=== PATIENT | male | born 1965 | race Caucasian/White ===

== ENCOUNTER 2021-02-13 00:31 | Emergency (ER) | payer BC ==
[~2021-02-13] VITALS: Ht 177.8 cm; Wt 92.1 kg
[2021-02-13] MEDS ORDERED: MIRAPEX1 MG PO (00:48)
== END 2021-02-13 02:36 | disposition home or self-care (01) ==
LOC: ED 00:31
DX: S61.411A Laceration without foreign body of right hand, initial encounter (principal); Z23 Encounter for immunization; V89.2XXA Person injured in unspecified motor-vehicle accident, traffic, initial encounter
CPT/HCPCS: 12002; 90471; 90715; 99282-25

== ENCOUNTER 2021-08-27 11:21 | Emergency (ER) | payer OTHER, BC ==
[~2021-08-27] VITALS: Ht 177.8 cm; Wt 84.4 kg
[~2021-08-27 11:21] MED LIST: MIRAPEX1 MG PO
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
[2021-08-27] MEDS ORDERED: SILDENAFIL CITR50 MG PO (11:54)
[2021-08-27] MEDS ORDERED: PRAMIPEXOLE0.125 MG PO (11:54)
[2021-08-27] MEDS ORDERED: ULTRAM50 MG PO (13:00)
== END 2021-08-27 13:15 | disposition home or self-care (01) ==
LOC: ED 11:21
DX: S70.11XA Contusion of right thigh, initial encounter (principal); G25.81 Restless legs syndrome; Z79.899 Other long term (current) drug therapy; W01.198A Fall on same level from slipping, tripping and stumbling with subsequent striking against other object, initial encounter
CPT/HCPCS: 73552; 99283-25